=== PATIENT | female | born 1960 | race Caucasian/White ===

== ENCOUNTER 2020-09-21 08:13 | Day surgery (SDC) | payer OTHER ==
[~2020-09-21] VITALS: Ht 157.5 cm; Wt 77.1 kg
[~2020-09-21 08:13] MED LIST: ASTELIN NASAL SPRAY; BACLOFEN5 MG PO; ECOTRIN81 MG PO; FISH OIL 1,0001 EAC4 PO; MULTIVITAMIN1 EACH PO; PEPCID40 MG PO; REQUIP0.25 MG PO; TOPAMAX50 MG PO; TYLENOL 8 HOUR650 MG PO; VITAMIN D PO; XYZAL5 MG PO
[2020-09-21] MEDS ORDERED: CLARITIN10 MG PO (09:21)
[2020-09-21] MEDS ORDERED: CELEXA40 MG PO (09:21)
[2020-09-21] MEDS ORDERED: VALISONE 0.1% O15 GM EXT (09:22)
[2020-09-21] MEDS ORDERED: VENTOLIN HFA 66.7 GM INH (09:23)
[2020-09-21 09:30] LABS: HEMOGLOBIN 12.5 gm/dl (12.3-15.3); RED BLOOD COUNT 4.29 M/UL (4.00-5.10); WHITE BLOOD COUNT 4.5 K/UL (4.5-11.0)
[2020-09-21 10:02] LABS: BUN/CREATININE RATIO 24 (0-10)
[2020-09-21] MEDS ORDERED: ZOFRAN 4 MG TAB4 MG PO (11:57)
[2020-09-21] MEDS ORDERED: DOCUSATE SODIU250 MG PO (11:57)
[2020-09-21] MEDS ORDERED: IBUPROFEN600 MG PO (11:57)
[2020-09-21] MEDS ORDERED: HYDROCODONE-AC1 EACH PO (11:57)
[2020-09-21] MEDS ORDERED: VITAMIN B-121000 MC3 PO (18:01)
[2020-09-21] MEDS ORDERED: BIOTIN5 M1 PO (18:02)
[2020-09-21] MEDS ORDERED: MULTI FOR HER1 EACH PO (18:02)
== END 2020-09-22 12:33 | disposition home or self-care (01) ==
LOC: OR 08:13 → OB 15:35 → OR 09-22 12:33
PROVIDERS: Obstetrics & Gynecology
DX: N81.9 Female genital prolapse, unspecified (principal); N94.10 Unspecified dyspareunia; K66.0 Peritoneal adhesions (postprocedural) (postinfection); F32.9 Major depressive disorder, single episode, unspecified; I10 Essential (primary) hypertension; J45.909 Unspecified asthma, uncomplicated; E78.2 Mixed hyperlipidemia; M06.9 Rheumatoid arthritis, unspecified; Z88.2 Allergy status to sulfonamides; Z79.899 Other long term (current) drug therapy
CPT/HCPCS: 80048; 85027; C1769; J0690; J1100; J1885; J2001; J2250; J2405; J2704; J2710; J3010; J7050; J7120